=== PATIENT | female | born 1995 | race Caucasian/White ===

== ENCOUNTER 2017-02-17 12:06 | Outpatient (CLI) | payer SELFPAY ==
[~2017-02-17] VITALS: Ht 162.6 cm; Wt 70.4 kg
[2017-02-17 12:17] VITALS: BP 117/78
== END 2017-02-17 13:50 | disposition home or self-care (01) ==
LOC: LDOP 12:06
PROVIDERS: ATTEND Student in an Organized Health Care Education/Training Program
DX: O26.893 Other specified pregnancy related conditions, third trimester (principal); R10.9 Unspecified abdominal pain; Z3A.38 38 weeks gestation of pregnancy
CPT/HCPCS: 59025; 99211; G0463

== ENCOUNTER → 2017-05-28 | Outpatient (CLI) | payer OTHER ==
[~2017-05-28] MED LIST: IBUP-1222 PO
== END | disposition home or self-care (01) ==
LOC: RAD 14:14
PROVIDERS: ATTEND Student in an Organized Health Care Education/Training Program
DX: N93.9 Abnormal uterine and vaginal bleeding, unspecified (principal)
CPT/HCPCS: 76856

== ENCOUNTER 2018-03-09 19:29 | Outpatient (CLI) | payer OTHER ==
[~2018-03-09] VITALS: Ht 162.6 cm; Wt 65.9 kg
[~2018-03-09 19:29] MED LIST changes: +PREN1TAB60 PO
[2018-03-09 20:06] LABS: MICROSCOPIC INDICATED
== END 2018-03-09 20:15 | disposition home or self-care (01) ==
LOC: LDOP 19:29
PROVIDERS: ATTEND Obstetrics & Gynecology
DX: O46.92 Antepartum hemorrhage, unspecified, second trimester (principal); Z3A.26 26 weeks gestation of pregnancy
CPT/HCPCS: 59025; 81001; 99211; G0463